=== PATIENT | female | born 1945 | race Asian ===

== ENCOUNTER 2020-10-18 10:07 | Emergency (ER) | payer MEDICARE, MEDICAID ==
[~2020-10-18] VITALS: Ht 154.9 cm; Wt 77.3 kg
[2020-10-18] MEDS ORDERED: SITA100 PO (10:16)
[2020-10-18] MEDS ORDERED: VALS160T2 PO (10:16)
[2020-10-18 11:15] VITALS: BP 182/98
== END 2020-10-18 12:33 | disposition home or self-care (01) ==
LOC: EMS 10:17
DX: E11.65 Type 2 diabetes mellitus with hyperglycemia (principal); I10 Essential (primary) hypertension; Z79.899 Other long term (current) drug therapy; Z76.0 Encounter for issue of repeat prescription
CPT/HCPCS: 82962; 99282